=== PATIENT | female | born 1960 | race Caucasian/White ===

== ENCOUNTER → 2019-11-19 15:05 | Outpatient (BNVA) | payer OTHER, SELFPAY | PROVIDERS: Family Provider Nurse Practitioner Family; PCP Nurse Practitioner Family; Visit Provider Nurse Practitioner Family | DX: N76.0 Acute vaginitis (principal); R53.83 Other fatigue; B37.9 Candidiasis, unspecified; E03.9 Hypothyroidism, unspecified; B96.89 Other specified bacterial agents as the cause of diseases classified elsewhere | CPT/HCPCS: 80053; 81001; 84439; 84443; 84481; 85025 ==

== ENCOUNTER → 2019-12-04 11:00 | Outpatient (BNVA) | payer OTHER, SELFPAY | PROVIDERS: Family Provider Nurse Practitioner Family; PCP Nurse Practitioner Family; Visit Provider Nurse Practitioner Family | DX: B37.3 Candidiasis of vulva and vagina (principal); E53.8 Deficiency of other specified B group vitamins; R25.3 Fasciculation | CPT/HCPCS: 87070 ==

== ENCOUNTER → 2019-12-10 14:29 | Outpatient (BNVA) | payer OTHER, SELFPAY | PROVIDERS: Family Provider Nurse Practitioner Family; PCP Nurse Practitioner Family; Visit Provider Nurse Practitioner Family | DX: E03.9 Hypothyroidism, unspecified (principal); E53.8 Deficiency of other specified B group vitamins | CPT/HCPCS: 80053; 82607 ==

== ENCOUNTER → 2020-03-31 09:03 | Outpatient (BNVA) | payer OTHER, SELFPAY | PROVIDERS: Family Provider Nurse Practitioner Family; PCP Nurse Practitioner Family; Visit Provider Urology | DX: N30.20 Other chronic cystitis without hematuria (principal) | CPT/HCPCS: 81001 ==

== ENCOUNTER → 2020-07-03 15:42 | Outpatient (BNVA) | payer OTHER, SELFPAY | PROVIDERS: Family Provider Nurse Practitioner Family; PCP Nurse Practitioner Family; Visit Provider Urology | DX: N39.0 Urinary tract infection, site not specified (principal) | CPT/HCPCS: 80053 ==

== ENCOUNTER → 2020-08-04 09:12 | Outpatient (BNVA) | payer OTHER, SELFPAY | PROVIDERS: Family Provider Nurse Practitioner Family; PCP Nurse Practitioner Family; Visit Provider Urology | DX: N30.20 Other chronic cystitis without hematuria (principal) | CPT/HCPCS: 81003 ==

== ENCOUNTER → 2020-09-03 15:13 | Outpatient (BNVA) | payer OTHER, SELFPAY | PROVIDERS: Family Provider Nurse Practitioner Family; PCP Nurse Practitioner Family; Visit Provider Urology | DX: N30.20 Other chronic cystitis without hematuria (principal) | CPT/HCPCS: 81003 ==

== ENCOUNTER 2020-09-15 13:55 | Outpatient (CLI) | payer OTHER, SELFPAY ==
--- NOTE | 2020-09-15 13:59 | MM_ITS ---
WS: [id number] Bilateral screening digital mammogram, 09/15/2020 Clinical Data: SCREENING Comparison: 07/02/2019, 06/12/2018, 05/26/2017, 04/19/2016, 03/24/2015, 03/04/2014, 02/19/2013, 01/03/2012, 12/01, 11/24/2009, 04/22/2008. Findings: The breast parenchymal pattern shows fat replacement. No spiculated masses or clustered calcification s are seen. There are no secondary signs of carcinoma. MM/[id number] Impression: 1. Negative bilateral mammogram unchanged. 2. Recommend annual screening mammograms. BIRADS: 1-Negative FOLLOW UP: 1 Year Follow-up The CAD bingo checker was used.
== END 2020-09-15 13:56 | disposition home or self-care (01) ==
LOC: RADSHAW 13:57
PROVIDERS: Family Provider Nurse Practitioner Family; PCP Nurse Practitioner Family; Visit Provider Nurse Practitioner Family
DX: Z12.31 Encounter for screening mammogram for malignant neoplasm of breast (principal)
CPT/HCPCS: 77067

== ENCOUNTER → 2020-10-13 10:17 | Outpatient (BNVA) | payer OTHER, SELFPAY | PROVIDERS: Family Provider Nurse Practitioner Family; PCP Nurse Practitioner Family; Visit Provider Urology | DX: N30.20 Other chronic cystitis without hematuria (principal); R35.1 Nocturia | CPT/HCPCS: 81003 ==

== ENCOUNTER → 2021-01-19 09:14 | Outpatient (BNVA) | payer OTHER, SELFPAY | PROVIDERS: Family Provider Nurse Practitioner Family; PCP Nurse Practitioner Family; Visit Provider Urology | DX: N30.20 Other chronic cystitis without hematuria (principal) | CPT/HCPCS: 81003 ==

== ENCOUNTER → 2021-01-30 08:44 | Outpatient (BNVA) | payer OTHER, SELFPAY | PROVIDERS: Family Provider Nurse Practitioner Family; PCP Nurse Practitioner Family; Visit Provider Urology | DX: N30.20 Other chronic cystitis without hematuria (principal) | CPT/HCPCS: 87086 ==

== ENCOUNTER 2021-03-31 06:00 | Outpatient (RCR) | payer OTHER, SELFPAY | END 2021-04-01 23:59 | disposition home or self-care (01) | LOC: WPT 06:00 | PROVIDERS: PCP Nurse Practitioner Family; Referring Provider Physician Assistant; Visit Provider Physician Assistant | DX: M46.08 Spinal enthesopathy, sacral and sacrococcygeal region (principal); M79.12 Myalgia of auxiliary muscles, head and neck; M79.18 Myalgia, other site; M53.3 Sacrococcygeal disorders, not elsewhere classified | CPT/HCPCS: 97110; 97161 ==

== ENCOUNTER 2021-04-02 06:00 | Outpatient (RCR) | payer OTHER, SELFPAY | END 2021-05-02 23:59 | disposition home or self-care (01) | LOC: WPT 06:00 | PROVIDERS: PCP Nurse Practitioner Family; Referring Provider Physician Assistant; Visit Provider Physician Assistant | DX: M25.552 Pain in left hip (principal) | CPT/HCPCS: 97110; 97112; 97140 ==

== ENCOUNTER → 2021-04-27 09:17 | Outpatient (BNVA) | payer OTHER, SELFPAY | PROVIDERS: PCP Nurse Practitioner Family; Visit Provider Urology | DX: N30.20 Other chronic cystitis without hematuria (principal) | CPT/HCPCS: 81003 ==

== ENCOUNTER 2021-05-03 06:00 | Outpatient (RCR) | payer OTHER, SELFPAY | END 2021-06-02 23:59 | disposition home or self-care (01) | LOC: WPT 06:00 | PROVIDERS: PCP Nurse Practitioner Family; Referring Provider Physician Assistant; Visit Provider Physician Assistant | DX: M46.08 Spinal enthesopathy, sacral and sacrococcygeal region (principal); M79.12 Myalgia of auxiliary muscles, head and neck; M79.18 Myalgia, other site; M53.3 Sacrococcygeal disorders, not elsewhere classified | CPT/HCPCS: 97110 ==

== ENCOUNTER → 2021-07-27 09:06 | Outpatient (BNVA) | payer OTHER, SELFPAY | PROVIDERS: PCP Nurse Practitioner Family; Visit Provider Nurse Practitioner Family | DX: N30.20 Other chronic cystitis without hematuria (principal) | CPT/HCPCS: 81003 ==

== ENCOUNTER 2021-09-04 06:00 | Outpatient (RCR) | payer OTHER, SELFPAY | END 2021-10-02 23:59 | disposition home or self-care (01) | LOC: WPT 06:00 | PROVIDERS: PCP Nurse Practitioner Family; Referring Provider Physician Assistant; Visit Provider Physician Assistant | DX: M54.16 Radiculopathy, lumbar region (principal); M43.16 Spondylolisthesis, lumbar region; M53.3 Sacrococcygeal disorders, not elsewhere classified | CPT/HCPCS: 97110; 97140; 97163; 97164; 97530 ==

== ENCOUNTER → 2021-09-28 09:00 | Outpatient (BNVA) | payer OTHER, SELFPAY | PROVIDERS: PCP Nurse Practitioner Family; Visit Provider Urology | DX: N30.20 Other chronic cystitis without hematuria (principal) | CPT/HCPCS: 81003 ==

== ENCOUNTER 2021-10-13 14:54 | Outpatient (CLI) | payer OTHER, SELFPAY ==
--- NOTE | 2021-10-13 15:04 | MM_ITS ---
WS: [id number] BILATERAL DIGITAL SCREENING MAMMOGRAPHY WITH CAD CLINICAL INFORMATION: SCREENING HISTORY: Screening mammogram. No current complaints. COMPARISON: September 15, 2020 TECHNIQUE: Bilateral CC and MLO views. FINDINGS: Scattered fibroglandular densities bilaterally. No suspicious focal mass, asymmetry, calcifications, or architectural distortion. No evidence of malignancy. MM/[id number] IMPRESSION: BI-RADS: 1-Negative FOLLOW UP: 1 Year Follow-up Recommend return to annual screening mammography.
== END 2021-10-13 14:55 | disposition home or self-care (01) ==
PROVIDERS: PCP Nurse Practitioner Family; Visit Provider Nurse Practitioner Family
DX: Z12.31 Encounter for screening mammogram for malignant neoplasm of breast (principal)
CPT/HCPCS: 77067

== ENCOUNTER → 2021-12-07 09:45 | Outpatient (BNVA) | payer OTHER, SELFPAY | PROVIDERS: PCP Nurse Practitioner Family; Visit Provider Nurse Practitioner Family | DX: E03.9 Hypothyroidism, unspecified (principal) | CPT/HCPCS: 84443 ==

== ENCOUNTER → 2022-01-25 11:26 | Outpatient (BNVA) | payer OTHER, SELFPAY | PROVIDERS: PCP Nurse Practitioner Family; Visit Provider Nurse Practitioner | DX: E03.9 Hypothyroidism, unspecified (principal) | CPT/HCPCS: 84443 ==

== ENCOUNTER → 2022-03-29 13:10 | Outpatient (BNVA) | payer OTHER, SELFPAY | PROVIDERS: PCP Nurse Practitioner Family; Visit Provider Nurse Practitioner Family | DX: N30.20 Other chronic cystitis without hematuria (principal) | CPT/HCPCS: 81003 ==

== ENCOUNTER → 2022-04-20 14:08 | Outpatient (BNVA) | payer OTHER, SELFPAY | PROVIDERS: PCP Nurse Practitioner Family; Referring Provider Dermatology; Visit Provider Podiatrist Foot & Ankle Surgery | DX: M19.072 Primary osteoarthritis, left ankle and foot (principal); M79.672 Pain in left foot | CPT/HCPCS: 73630 ==

== ENCOUNTER 2022-10-18 09:52 | Outpatient (CLI) | payer BC, SELFPAY ==
--- NOTE | 2022-10-18 10:07 | MM_ITS ---
WS: [id number] Bilateral screening 3D tomosynthesis digital mammogram, 10/18/2022 Clinical Data: SCREENING Comparison: 10/13/2021, 09/15/2020, 07/02/2019, 06/12/2018, 05/26/2017, 04/19/2016, 03/24/2015, 03/04/2014, , 01/03/2012, 12/14/2010, 11/24/2009, 04/22/2008, 05/02/2006. Findings: The breast parenchymal pattern shows fibroglandular tissue. No spiculated masses or clustered calcifi cations are seen. There are no secondary signs of carcinoma. MM/[place] [id number] Impression: 1. Negative bilateral mammogram unchanged. 2. Recommend annual screening mammograms. BIRADS: 1-Negative FOLLOW UP: 1 Year Follow-up The CAD blast furnace checker was used.
== END 2022-10-18 09:53 | disposition home or self-care (01) ==
PROVIDERS: PCP Family Medicine; Visit Provider Nurse Practitioner Family
DX: Z12.31 Encounter for screening mammogram for malignant neoplasm of breast (principal)
CPT/HCPCS: 77063; 77067

== ENCOUNTER → 2022-11-09 14:01 | Outpatient (BNVA) | payer BC, SELFPAY | PROVIDERS: PCP Family Medicine; Visit Provider Urology | DX: N30.20 Other chronic cystitis without hematuria (principal) | CPT/HCPCS: 81003 ==

== ENCOUNTER 2023-01-31 06:00 | Outpatient (RCR) | payer BC, SELFPAY | END 2023-03-02 23:59 | disposition home or self-care (01) | LOC: WPT 06:00 | PROVIDERS: Visit Provider Family Medicine | DX: H81.10 Benign paroxysmal vertigo, unspecified ear (principal) | CPT/HCPCS: 97110; 97112; 97161; 97530 ==

== ENCOUNTER 2023-03-03 06:00 | Outpatient (RCR) | payer BC, SELFPAY | END 2023-04-01 23:59 | disposition home or self-care (01) | LOC: WPT 06:00 | PROVIDERS: Visit Provider Family Medicine | DX: H81.10 Benign paroxysmal vertigo, unspecified ear (principal) | CPT/HCPCS: 97110; 97530 ==

== ENCOUNTER 2023-04-19 06:00 | Outpatient (RCR) | payer BC, SELFPAY | END 2023-05-02 23:59 | disposition home or self-care (01) | LOC: WPT 06:00 | PROVIDERS: Visit Provider Podiatrist Foot & Ankle Surgery | DX: M72.2 Plantar fascial fibromatosis (principal) | CPT/HCPCS: 97110; 97140; 97161; 97530 ==

== ENCOUNTER 2023-05-03 06:00 | Outpatient (RCR) | payer BC, SELFPAY | END 2023-06-02 23:59 | disposition home or self-care (01) | LOC: WPT 06:00 | PROVIDERS: Visit Provider Podiatrist Foot & Ankle Surgery | DX: M72.2 Plantar fascial fibromatosis (principal) | CPT/HCPCS: 97110; 97112; 97140; 97530 ==

== ENCOUNTER 2023-06-28 06:00 | Outpatient (RCR) | payer BC, SELFPAY | END 2023-07-02 23:59 | disposition home or self-care (01) | LOC: WPT 06:00 | PROVIDERS: Visit Provider Podiatrist Foot & Ankle Surgery | DX: M72.2 Plantar fascial fibromatosis (principal) | CPT/HCPCS: 97035; 97110; 97140; 97161 ==

== ENCOUNTER 2023-07-03 06:00 | Outpatient (RCR) | payer BC, SELFPAY | END 2023-08-02 23:59 | disposition home or self-care (01) | LOC: WPT 06:00 | PROVIDERS: Visit Provider Podiatrist Foot & Ankle Surgery | DX: M72.2 Plantar fascial fibromatosis (principal) | CPT/HCPCS: 97035; 97110; 97140; 97530 ==

== ENCOUNTER 2023-08-03 06:00 | Outpatient (RCR) | payer BC, SELFPAY | END 2023-09-01 23:59 | disposition home or self-care (01) | LOC: WPT 06:00 | PROVIDERS: Visit Provider Podiatrist Foot & Ankle Surgery | DX: M72.2 Plantar fascial fibromatosis (principal) | CPT/HCPCS: 97110; 97140 ==

== ENCOUNTER → 2023-09-13 08:18 | Outpatient (BNVA) | payer SELFPAY | PROVIDERS: PCP Nurse Practitioner Family; Visit Provider Nurse Practitioner Family | DX: Z13.6 Encounter for screening for cardiovascular disorders (principal) ==

== ENCOUNTER → 2023-09-19 15:08 | Outpatient (BNVA) | payer BC, SELFPAY | PROVIDERS: PCP Nurse Practitioner Family; Visit Provider Nurse Practitioner Family | DX: E03.9 Hypothyroidism, unspecified (principal) | CPT/HCPCS: 84443 ==

== ENCOUNTER 2023-09-28 12:11 | Outpatient (CLI) | payer BC, SELFPAY ==
--- NOTE | 2023-09-28 12:15 | XRR_ITS ---
PROCEDURE INFORMATION: Exam: XR Cervical Spine Exam date and time: 09/28/2023 12:26 PM Age: 62 years old Clinical indication: Pain; Cervicalgia; Additional info: M54.2 - cervicalgia TECHNIQUE: Imaging protocol: Radiologic exam of the cervical spine. Views: 6 or more views. COMPARISON: No relevant prior studies available. FINDINGS: Bones/joints: There is positional straightening of the normal upper cervical lordosis on the neutral view. No spondylolisthesis with flexion or extension. Vertebral body height is maintained. Intervertebral disc height is maintained. Small anterior vertebral osteophytes in the lower cervical spine. Mild C7-T1 facet spondylosis. Facet joints are otherwise unremarkable. No visible fracture. Cervical spine is visible through C7 on the lateral view. No osseous neural foraminal stenosis is visible. Soft tissues: Visible soft tissues are unremarkable. XR/XR cervical spine min 6V [id number] IMPRESSION: 1. No spondylolisthesis. 2. Mild facet degeneration C7-T1.
== END 2023-09-28 12:12 | disposition home or self-care (01) ==
LOC: RAD 12:13
PROVIDERS: PCP Nurse Practitioner Family; Visit Provider Nurse Practitioner Family
DX: M50.30 Other cervical disc degeneration, unspecified cervical region (principal); M47.813 Spondylosis without myelopathy or radiculopathy, cervicothoracic region
CPT/HCPCS: 72052

== ENCOUNTER 2023-10-26 10:42 | Outpatient (CLI) | payer BC, SELFPAY ==
--- NOTE | 2023-10-26 10:45 | MM_ITS ---
WS: [id number] BILATERAL SCREENING DIGITAL TOMOSYNTHESIS MAMMOGRAM WITH CAD HISTORY: SCREENING COMPARISON: 10/18/2022, 10/13/2021 Bilateral CC and MLO views with tomosynthesis and synthetic mammography submitted. Computer aided det ection analyzed. Breast composition: There are scattered areas of fibroglandular density. No suspicious masses, microc alcifications or architectural distortion. IMPRESSION: MM/[place] [id number] BI-RADS: 2-Benign FOLLOW UP: 1 Year Follow-up
== END 2023-10-26 10:43 | disposition home or self-care (01) ==
LOC: RAD 10:43
PROVIDERS: PCP Nurse Practitioner Family; Visit Provider Nurse Practitioner Family
DX: Z12.31 Encounter for screening mammogram for malignant neoplasm of breast (principal); R92.323 Mammographic fibroglandular density, bilateral breasts
CPT/HCPCS: 77063; 77067

== ENCOUNTER 2023-11-15 08:41 | Outpatient (CLI) | payer BC, SELFPAY ==
--- NOTE | 2023-11-15 09:30 | MR_ITS ---
WS: [id number] MRI CERVICAL SPINE NONCONTRAST TECHNIQUE: Sagittal T1, T2 and STIR imaging. Axial T2, gradient, and fiesta imaging. CLINICAL INFORMATION: M54.2 - Cervicalgia LEFT arm pain. COMPARISON: None. FINDINGS: Straightening of the normal cervical lordosis. Cord signal is normal. No high-grade central canal mallory rowing. C2-C3: Normal. C3-C4: Mild facet arthropathy. Spinal canal and foramen are patent. C4-C5: Moderate facet arthropathy. Spinal canal and foramen are patent. C5-C6: Moderate facet arthropathy with uncovertebral joint hypertrophy. Mild LEFT bony foraminal narr owing. Spinal canal and RIGHT foramen are patent. C6-C7: Mild facet arthropathy. Spinal canal and foramen are patent. C7-T1: Mild disc osteophytic ridging. Mild LEFT and no significant RIGHT foraminal narrowing. Spinal canal is patent. Visualized brain stem structures: Normal. Prevertebral soft tissues: Normal. Incidental perineural cysts bilateral T1-2. Upper thoracic canal appears patent. IMPRESSION: 1. Straightening of the normal cervical lordosis. Cord signal is normal. No significant central yousuf l stenosis. 2. Mild LEFT bony foraminal narrowing LEFT C5-C6 and LEFT C7-T1. 3. Moderate facet arthropathy C4-C5 and C5-C6
== END 2023-11-15 08:42 | disposition home or self-care (01) ==
LOC: RAD 08:47
PROVIDERS: PCP Nurse Practitioner Family; Visit Provider Nurse Practitioner Family
DX: M50.30 Other cervical disc degeneration, unspecified cervical region (principal); M48.03 Spinal stenosis, cervicothoracic region; M47.812 Spondylosis without myelopathy or radiculopathy, cervical region; M79.602 Pain in left arm
CPT/HCPCS: 72141

== ENCOUNTER → 2024-01-09 10:29 | Outpatient (BNVA) | payer BC, SELFPAY | PROVIDERS: PCP Nurse Practitioner Family; Visit Provider Nurse Practitioner Family | DX: E03.9 Hypothyroidism, unspecified (principal) | CPT/HCPCS: 84443 ==

== ENCOUNTER → 2024-04-23 11:54 | Outpatient (BNVA) | payer BC, SELFPAY | PROVIDERS: PCP Nurse Practitioner Family; Visit Provider Nurse Practitioner Family | DX: E03.9 Hypothyroidism, unspecified | CPT/HCPCS: 84443 ==

== ENCOUNTER 2024-11-05 09:15 | Outpatient (CLI) | payer BC, SELFPAY ==
--- NOTE | 2024-11-05 09:28 | MM_ITS ---
WS: [id number] SCREENING DIGITAL BREAST TOMOSYNTHESIS MAMMOGRAM WITH CAD HISTORY: SCREEN COMPARISON: 10/26/2023, 10/18/2022, 06/12/2018 Bilateral CC and MLO with tomosynthesis and synthetic mammography submitted. Computer aided detection analyzed. Breast composition: There are scattered areas of fibroglandular density. New focal asymmetry in the l ateral mid RIGHT breast at a middle depth. Asymmetry is seen only on the CC projection. No suspicious calcifications. LEFT breast is negative. MM/MM scr [place] tomosynthesis [id number] IMPRESSION: BI-RADS: 0 - Incomplete: Need additional imaging evaluation. FOLLOW UP: Need Additional Imaging RIGHT breast: Spot compression views (CC ). True ML. Ultrasound to follow if ab normality persists.
== END 2024-11-05 09:16 | disposition home or self-care (01) ==
LOC: RAD 09:18
PROVIDERS: PCP Nurse Practitioner Family; Visit Provider Nurse Practitioner Family
DX: Z12.31 Encounter for screening mammogram for malignant neoplasm of breast (principal); R92.323 Mammographic fibroglandular density, bilateral breasts; N64.89 Other specified disorders of breast
CPT/HCPCS: 77063; 77067

== ENCOUNTER 2024-11-27 08:32 | Outpatient (CLI) | payer BC, SELFPAY ==
--- NOTE | 2024-11-27 09:00 | MM_ITS ---
WS: [id number] ADDITIONAL VIEWS RIGHT MAMMOGRAM WITH DIGITAL BREAST TOMOSYNTHESIS. HISTORY: New asymmetry RIGHT breast. COMPARISON: 11/05/2024, 10/26/2023, 10/18/2022, 10/13/2021 Spot compression views RIGHT breast in CC and true ML submitted with digital breast tomosynthesis and SM. Breast composition: There are scattered areas of fibroglandular density. The asymmetry described in the lateral RIGHT breast at middle depth resolves with additional spot compression views. This was likely superimposed fibroglandular tissues. No abnormality on the RIGHT ML view. MM/MM diag RT tomosynthesis [id number] IMPRESSION: BI-RADS: 2 - Benign. FOLLOW UP: 1 Year Follow-up Return to annual screening mammography.
== END 2024-11-27 08:33 | disposition home or self-care (01) ==
PROVIDERS: PCP Nurse Practitioner Family; Visit Provider Nurse Practitioner Family
DX: R92.8 Other abnormal and inconclusive findings on diagnostic imaging of breast (principal); R92.321 Mammographic fibroglandular density, right breast
CPT/HCPCS: 77061; G0279

== ENCOUNTER → 2024-12-17 13:51 | Outpatient (BNVA) | payer BC, SELFPAY | PROVIDERS: PCP Nurse Practitioner Family; Visit Provider Nurse Practitioner | DX: M19.012 Primary osteoarthritis, left shoulder (principal); R29.898 Other symptoms and signs involving the musculoskeletal system | CPT/HCPCS: 73030 ==

== ENCOUNTER 2024-12-28 07:02 | Outpatient (CLI) | payer BC, SELFPAY ==
--- NOTE | 2024-12-28 07:15 | MR_ITS ---
WS: [id number] MRI LEFT SHOULDER HISTORY: left shoulder pain COMPARISON: 03/29/2016, radiograph 12/17/2024 TECHNIQUE: Multiplanar sequences of the shoulder joint are submitted. Minimal narrowing of the AC joint and osteophytes along the joint space. No significant encroachment upon the supraspinatus tendon. Mild subacromial impingement. There is a very small amount of fluid in the subacromial and subdeltoid bursa. No os acromion. Normal position of the biceps tendon. There is marked thinning of the biceps tendon just proximal to the bicipital groove which is stable. Minimal narrowing the glenohumeral joint. No fracture or marrow edema. No rotator cuff muscle atrophy or edema. Minimal articular surface tear of the distal supraspinatus. There is no retraction of the tendon. Mild thickening of the distal subscapularis tendon. No labral tears. No evidence for adhesive capsulitis. MR/MR shoulder LT con* [id number] IMPRESSION: 1. Mild AC joint arthropathy and mild subacromial impingement. 2. Very small articular surface tear distal supraspinatus tendon without retra ction. New since the prior MRI from 2015. 3. No muscle atrophy or edema. 4. No significant joint effusion.
== END 2024-12-28 07:03 | disposition home or self-care (01) ==
PROVIDERS: PCP Nurse Practitioner Family; Visit Provider Nurse Practitioner
DX: M75.42 Impingement syndrome of left shoulder (principal); M67.814 Other specified disorders of tendon, left shoulder; M25.712 Osteophyte, left shoulder; R93.6 Abnormal findings on diagnostic imaging of limbs
CPT/HCPCS: 73221

== ENCOUNTER 2025-03-11 08:33 | Outpatient (CLI) | payer BC, SELFPAY ==
[2025-03-11 09:11] LABS: Basophils # 0.1 10^3/uL (0.0-0.1); Basophils % 1.2 %; Eosinophils # 0.2 10^3/uL (0.0-0.8); Eosinophils % 2.2 %; Hematocrit 42.8 % (36-47); Lymphocytes # 2.7 10^3/uL (0.8-4.8); Lymphocytes % 39.3 %; Mean Corpuscular HGB Conc 32.7 g/dL (30-55); Mean Corpuscular Volume 97.9 fl (85-98); Mean Platelet Volume 8.9 fL (7.4-10.4); Monocytes # 0.7 10^3/uL (0.2-0.9); Monocytes % 9.9 %; Neutrophils # 3.21 10^3/uL (1.8-7.7); Neutrophils % 47.3 %; Nucleated Red Blood Cells % 0 %; Platelet Count 363 10^3/cmm (157-399); Red Blood Count 4.37 10^6/uL (3.85-5.65); White Blood Count 6.79 10^3/uL (3.29-11.43)
[2025-03-11 09:14] LABS: Bilirubin Urine Negative (Negative); Blood Urine Negative (Negative); Glucose Urine UA Negative (Normal); Ketones Urine Negative (Negative); Leukocyte Esterase Urine Negative (Negative); Nitrate Urine Negative (Negative); Protein Urine Negative (Negative); Specific Gravity, Urine 1.004 (1.005-1.030); Urine Appearance Clear (CLEAR); Urine Color Yellow (Yellow); Urobilinogen Urine 0.2 mg/dL (Negative); pH Urine 6.5 (5-7)
[2025-03-11 09:19] LABS: Add Urine Microscopic? YES; Bacteria Urine None Seen /hpf; Hyaline Casts Urine 0-4 /lpf; RBC Urine 0-2 /hpf (0-2); Squamous Epithelial Cell Urine 0-5 /hpf (0-5); WBC Urine 0-5 /hpf (0-5)
[2025-03-11 09:30] LABS: Alanine Aminotransferase 18 U/L (0-33); Albumin Level 4.3 g/dL (3.5-5.2); Alkaline Phosphatase 58 U/L (35-105); Anion Gap 15.1 (5-19); Aspartate Amino Transferase 16 U/L (0-32); Blood Urea Nitrogen 11 mg/dL (8-23); Calcium 9.2 mg/dL (8.5-10.5); Carbon Dioxide 23 mmol/L (22-29); Chloride 104 mmol/L (98-107); Globulin 2.7 g/dL (1.3-4.6); Glomerular Filtration Rate 124.6 mL/min (90-130); Glucose 91 mg/dL (65-115); Osmolality Calculated 285 mOsm/kg (285-295); Potassium 4.1 mmol/L (3.5-5.1); Sodium 138 mmol/L (136-145); Total Bilirubin 0.5 mg/dL (0.15-1.2)
== END 2025-03-11 08:34 | disposition home or self-care (01) ==
PROVIDERS: PCP Nurse Practitioner Family; Visit Provider Specialist
DX: Z01.818 Encounter for other preprocedural examination (principal)
CPT/HCPCS: 80053; 81001; 85025

== ENCOUNTER 2025-03-26 09:02 | Day surgery (SDC) | payer BC, SELFPAY ==
[2025-03-26] VITALS (9 sets, daily range): BP systolic 107–129; BP diastolic 62–83; PULSE 62–80; RESP 15–18; TEMP 36.1–36.7; O2SAT 97–100; BMI 27.4
[2025-03-26] MEDS: sodium chloride 0.9% 1,000 ML 30 ML IV (09:56)
[2025-03-26] MEDS: CELEcoxib 200 mg Capsule 400 MG PO (09:58)
[2025-03-26] MEDS: gabapentin 300 mg Capsule PO (09:58)
[2025-03-26] MEDS: acetaminophen 1,000 MG/100 ML PIGGYBACK 400 MG IV (10:02)
--- NOTE | 2025-03-26 10:17 | ANES.PREANE2 ---
Pre-Anesthetic Assessment Height/Weight: Height 1.63 m Weight 72.575 kg Temp Pulse Resp BP Pulse Ox O2 Del Method 98.0 F 62 18 107/62 99 Room Air 03/26/25 09:26 03/26/25 09:26 03/26/25 09:26 03/26/25 09:26 03/26/25 09:26 03/26/25 09:26 Preop Diagnosis: Left Shoulder Pain Operation Date: 03/26/25 10:50 Proposed Procedures p POSSIBLE Rotator Cuff Repair - Open(Left) - Jaleesa Rodriges MD s Open Shoulder Acromioplasty(Left) - Jaleesa Rodriges MD s Distal Clavicle Resection(Left) - Jaleesa Rodriges MD Familial anesthetic complications: None Was Beta Momo taken within 24 hours: N/A Was Clonidine taken within 24 hours: N/A Last intake: Intake Last Liquid Date 03/26/25 Last Liquid Time 02:00 Last Solid Date 03/26/25 Last Solid Time 19:00 Social Alcohol and No tobacco Occassional Alcohol Exam alert, oriented x 3, clear to auscultation bilaterally and regular rate & rhythm Airway Submandibular: within normal limits Cervical ROM: within normal limits Mallampati: Class II Dentition: full History/ROS No significant history except as noted and No significant complaints Pulmonary None reported CV/HEM None reported None reported Hepatic None reported GI None reported Metabolic Thyroid Disease Musc/skel Lower Back Pain Left Shoulder Pain Neuropsych None reported Anesthetic Plan ASA status: 2 Anesthesia: General and Regional (specify below) (Interscalene Block) Risk of > 500 ml blood loss (7ml/kg in children): No Medications/Allergies Home Medications ?Medication ?Instructions ?Recorded ?Confirmed ?Last Taken ?Type nitrofurantoin 100 mg PO BID PRN UTI 90 days #60 06/12/24 03/26/25 Unknown Rx monohydrate/macrocrystals 100 mg caps capsule (Macrobid) levothyroxine 125 mcg tablet 125 mcg PO DAILY #90 tabs 12/24/24 03/25/25 03/26/25 Rx baclofen 5 mg tablet 5 mg PO BID PRN muscle spasms 03/25/25 03/26/25 03/24/25 History estradiol 1 mg tablet 1 mg PO DAILY 03/25/25 03/25/25 03/25/25 History estradiol 10 mcg vaginal tablet 10 mcg vaginal DIRECTED 03/25/25 03/25/25 03/25/25 History hydrocodone 5 mg-acetaminophen 325 1 tab PO BID PRN pain 03/25/25 03/25/25 03/26/25 History mg tablet methenamine hippurate 1 gram tablet 1 g PO BID PRN uti 03/25/25 03/26/25 03/26/25 History Allergies Allergy/AdvReac Type Severity Reaction Status Date / Time codeine AdvReac NAUSEA Verified 03/26/25 09:19 Penicillins AdvReac RASH Verified 03/26/25 09:19 Current Medications Generic Name Dose Route Start Last Admin Trade Name Freq PRN Reason Stop Dose Admin Sodium Chloride 1,000 mls @ 30 mls/hr 03/26/25 09:15 03/26/25 09:56 Sodium Chloride 0.9% IV 03/27/25 09:14 30 mls/hr .Q24H SARITA Administration PFSH Anesthesia Medical History Supraspinatus tendon tear Acromioclavicular joint arthritis Osteoarthritis of left shoulder Weakness of left shoulder Abnormal finding on breast cancer screening Tarlov cyst Chronic neck pain Anxiety DDD (degenerative disc disease), cervical Cervical spine pain Recurrent UTI Mixed hyperlipidemia Postmenopausal HRT (hormone replacement therapy) Chronic back pain Vertigo Chronic cystitis Hypothyroidism Surgical History Status post cholecystectomy History of back surgery Status post hysterectomy Family History Mother UTI (urinary tract infection) with pyuria Father , at age 75 Cancer MELANOMA Other CAD (coronary artery disease) Diabetes Thyroid disease Social History Smoking and tobacco/nicotine status: never used tobacco/nicotine
--- NOTE | 2025-03-26 11:17 | P.HPUD_ITS ---
Surgery/Procedure H&P Update DATE OF PROCEDURE: March 26, 2025 DATE H&P PERFORMED: 03/18/25 H&P UPDATE INFORMATION: I have reviewed H&P completed within last 30 days, I have examined patient prior to procedure, No changes to prior documentation, H&P is in [facility] EMR on date indicated and Risks and benefits of the procedure reviewed PREOP DIAGNOSIS: Left Shoulder Pain PRIMARY INDICATION FOR PROCEDURE: MRI LEFT SHOULDER 12/28/24 IMPRESSION: 1. Mild AC joint arthropathy and mild subacromial impingement. 2. Very small articular surface tear distal supraspinatus tendon without retraction. New since the prior MRI from 2015. 3. No muscle atrophy or edema. 4. No significant joint effusion. PLANNED PROCEDURE: Operation Date: 03/26/25 10:50 Proposed Procedures p POSSIBLE Rotator Cuff Repair - Open(Left) - Jaleesa Rodriges MD s Open Shoulder Acromioplasty(Left) - Jaleesa Rodriges MD s Distal Clavicle Resection(Left) - Jaleesa Rodriges MD Related Problem List Diagnoses (1) Acromioclavicular joint arthritis: Qualifiers: Laterality: left Qualified Code(s): M19.012 - Primary osteoarthritis, left shoulder (2) Impingement of left shoulder: (3) Supraspinatus tendon tear: Qualifiers: Laterality: left Qualified Code(s): M75.102 - Unspecified rotator cuff tear or rupture of left shoulder, not specified as traumatic
[2025-03-26] MEDS: ceFAZolin 2,000 mg SDV 2000 MG IVP (11:41)
[2025-03-26] MEDS: ceFAZolin 1,000 mg SDV 1000 MG IRRIGATION (12:53)
--- NOTE | 2025-03-26 12:55 | PM.OP ---
Operative Report Date of procedure: March 26, 2025 Pre-op diagnosis: Left shoulder impingement with acromioclavicular osteoarthritis and possible rotator cuff tear Post-op diagnosis: Left shoulder impingement with acromioclavicular osteoarthritis and possible rotator cuff tear Post-op findings: Left shoulder impingement, acromioclavicular osteoarthritis, and bursitis without rotator cuff tear Procedure done: Left shoulder acromioplasty with distal clavicle resection and bursectomy Implants: None Pathology: None Surgeon: Jaleesa Rodriges MD Cable Testers Helper: Tatiana Conner, nurse practitioner, who services were required for retraction, exposure, and completion of the surgical procedure Anesthesia: General (Intubated, ASA 2) Estimated blood loss (mL): 10 IV fluids (mL): 1,200 Urine output (mL): 0 Complications: None Findings: See above Condition: stable Disposition: PACU (Then return to same-day surgery for discharge to home) Brief History: This 64-year-old woman presented to clinic with complaints of chronic left shoulder pain. She had undergone treatment including anti-inflammatories, activity modifications, physical therapy for range of motion at home, strengthening, and corticosteroid injections. MRI demonstrated mild acromioclavicular osteoarthritis with subacromial impingement and a very small articular surface tear of the distal supraspinatus without retraction. There was no significant joint effusion. After discussion, the patient wished to proceed with operative intervention in the form of left shoulder acromioplasty, distal clavicle resection, bursectomy, and evaluation of rotator cuff. Procedure: The patient was brought to the operating theater and underwent general intubated anesthesia, ASA 2 with interscalene block. The patient was placed in a beachchair position and subsequently the left upper extremity was prepped and draped in the usual fashion utilizing DuraPrep. The arm was draped free. A surgical pause was performed prior to commencement of the surgical procedure. At the time of the surgical pause, we confirmed the site and side of surgery as well as administration of appropriate preoperative antibiotics Ancef 2 g. MRI was also reviewed at that time. Following the surgical pause, an incision was made at approximately the level of the acromioclavicular joint extending across the anterolateral corner of the acromion and distally as necessary. Care was taken to avoid injury to the axillary nerve by limiting the distal extent of the incision. Dissection continued through skin and soft tissues using a scalpel. Hemostasis was obtained using electrocautery. Soft tissues were elevated off the acromion and the acromioclavicular joint. The acromioclavicular joint was exposed. A saw was then used to resect the distal clavicle without difficulty. The undersurface of the clavicle was palpated and was slightly further debrided. A power rasp was used to further smooth the area. When this was felt to be adequately resected, the wound was irrigated. Attention was then directed to the acromion. An acromioplasty was then accomplished using a combination of a saw and a power rasp. With this, we were able to remove the significant compression caused by the acromion. A bursal debridement was accomplished. The rotator cuff was then evaluated to look for tears. There were none. The patient was placed through full rotational range of motion. Palpation was accomplished of the rotator cuff. The shoulder was placed once again through further range of motion to assure that there was no evidence of additional rotator cuff tear following additional bursal debridement. There was no evidence of significant adhesive capsulitis. At this point, attention was directed to wound closure. The wound was irrigated and closure was accomplished with 0 Vicryl in the capsular tissues overlying the acromioclavicular joint area as well as over the acromion and down into the deltoid muscle. 2-0 Monocryl was used to close the subcutaneous tissues followed by 4-0 Monocryl subcuticular closure. This was followed by Dermabond, Steri-Strips, and OpSite. The patient was placed in a sling and was returned to the recovery room in satisfactory condition. The patient will be discharged to home to follow-up with me in the office. There were no complications and no specimens. Related Problem List Diagnoses (1) Impingement of left shoulder: (2) Acromioclavicular joint arthritis: (3) Bursitis of left shoulder:
--- NOTE | 2025-03-26 13:44 | ANES.PROC ---
Anesthesia Procedures Procedure/Date: 03/26/25 Nerve Block ^: Nerve Block 1: Main Anesthesia: general anesthesia Time Out Performed: Yes Consent: requested by attending/covering physician, from patient, risks and benefits reviewed and patient agrees to proceed Nerve block location: brachial plexus (Suprascapular nerve block) Anesthesia monitors applied: pulse oximetry, EKG, BP cuff and oxygen Nerve block position: semi sitting Anesthetic Used: ropivicaine 0.5% Amount of anesthesia used (mL): 30 Ultrasound used to: recognize landmarks, visualize and ID brachial plexus, in supraclavicular region and visualize and ID interscalene groove Nerve Stimulator Used?: Yes Interscalene/Femoral BLK: 4 stimuplex 21 g needle used for position and inplane approach, visualize local anesthetic spread and no vascular puncture identified Injection: neg aspiration of heme Patient Tolerated Procedure: well and no complications Complications: none Additional Comments: Versed 2 mg given for sedation
[2025-03-26] MEDS: HYDROcodone-acetaminophen 5-325 mg Tablet 1 TAB PO (13:49)
--- NOTE | 2025-03-26 15:00 | ANE.PACU2 ---
Inpatient post-anesthesia follow up: Airway intact: Yes Vital signs: Temperature 97.0 F Pulse Rate 62 Respiratory Rate 16 Blood Pressure 124/76 Pulse Oximetry 100 Oxygen Delivery Me thod Room Air Oxygen Flow Rate Fraction of Inspir ed Oxygen Hydration adequate: Yes Nausea and vomiting: No Pain level: 1 Mental status: Baseline
== END 2025-03-26 15:00 | disposition home or self-care (01) ==
PROVIDERS: PCP Nurse Practitioner Family; Visit Provider Specialist
PROC: (CPT 23130; 2025-03-26 10:50)
PROC: (CPT 23120; 2025-03-26 10:50)
PROC: (CPT 23130; 2025-03-26 10:50)
DX: M75.42 Impingement syndrome of left shoulder (principal); M19.012 Primary osteoarthritis, left shoulder; M75.52 Bursitis of left shoulder; E07.9 Disorder of thyroid, unspecified; E78.2 Mixed hyperlipidemia; F41.9 Anxiety disorder, unspecified; Z87.440 Personal history of urinary (tract) infections
CPT/HCPCS: 23130; 23120; J0131; J0690; J1100; J2250; J2371; J2405; J2704; J2795; J3010; J3490; J7030; J9999

== ENCOUNTER → 2025-05-17 10:09 | Outpatient (BNVA) | payer BC, SELFPAY | PROVIDERS: PCP Nurse Practitioner Family; Visit Provider Nurse Practitioner | DX: M16.12 Unilateral primary osteoarthritis, left hip (principal) | CPT/HCPCS: 73502 ==

== ENCOUNTER → 2025-05-31 11:36 | Outpatient (BNVA) | payer BC, SELFPAY | PROVIDERS: PCP Nurse Practitioner Family; Visit Provider Specialist | DX: M16.12 Unilateral primary osteoarthritis, left hip (principal) | CPT/HCPCS: 77002 ==